=== PATIENT | male | born 1950 | race Caucasian/White ===

== ENCOUNTER 2020-08-28 11:52 | Outpatient (CLI) | payer MEDICARE, SELFPAY ==
--- NOTE | 2020-08-28 13:00 | ECG_ITS ---
Measurements Intervals [place] Rate: 61 P: 69 MO: 174 QRS: 7 QRSD: 111 T: 31 QT: 402 QTc: 405 Interpretive Statements SINUS RHYTHM INTRAVENTRICULAR CONDUCTION DELAY BORDERLINE R WAVE PROGRESSION, ANTERIOR LEADS BASELINE ARTIFACT- I, II, AVR, AVL, AVF, V4-V5 BORDERLINE ECG Electronically Signed On 08-28-2020 13:12:21 CDT by Darien Grimaldo D.O.
[2020-08-28 13:35] LABS: Anion Gap 5 mmol/L (8-16); Blood Urea Nitrogen 23 mg/dL (9-20); Calcium 9.7 mg/dL (8.4-10.2); Carbon Dioxide 32 mmol/L (22-30); Chloride 102 mmol/L (98-107); Estimated Glomerular Filt Rate 60; Glucose 171 mg/dL (75-110); Potassium 4.5 mmol/L (3.4-5.0); Sodium 139 mmol/L (137-145)
== END 2020-08-28 11:53 | disposition home or self-care (01) ==
LOC: ANHSURGERY 11:55
PROVIDERS: Anesthesiology; PCP Family Medicine; Visit Provider Urology
DX: Z01.818 Encounter for other preprocedural examination (principal); N52.9 Male erectile dysfunction, unspecified; E78.00 Pure hypercholesterolemia, unspecified; E11.9 Type 2 diabetes mellitus without complications; I45.9 Conduction disorder, unspecified; Z51.81 Encounter for therapeutic drug level monitoring; Z79.899 Other long term (current) drug therapy
CPT/HCPCS: 36415; 80048; 83036; 87086; 87088; 93005

== ENCOUNTER → 2020-09-02 01:00 | Outpatient (CLI) | payer MEDICARE, SELFPAY ==
[2020-09-02 18:53] LABS: SARS-CoV-2 RNA PCR Negative
== END ==
PROVIDERS: PCP Family Medicine; Visit Provider Urology
DX: Z01.812 Encounter for preprocedural laboratory examination (principal); Z20.822 Contact with and (suspected) exposure to COVID-19
CPT/HCPCS: C9803; U0003; U0005

== ENCOUNTER 2020-09-06 01:56 | Day surgery (SDC) | payer MEDICARE, SELFPAY ==
[2020-08-28 09:12] VITALS: BP 141/66; PULSE 66; RESP 18; TEMP 37.4; O2SAT 96
[2020-08-28 12:22] VITALS: BMI 40.3
[2020-09-06] VITALS (9 sets, daily range): BP systolic 139–172; BP diastolic 66–79; PULSE 74–86; RESP 14–20; TEMP 36.6–37.2; O2SAT 92–100
[2020-09-06] MEDS: LACTATED RINGERS 1,000 ML 30 ML IV CONT ×2 (10:10→15:28)
[2020-09-06 10:22] LABS: Glucose Point of Care 154 (65-105)
[2020-09-06] MEDS: GENTAMICIN SULFATE INJ 450 MG in DEXTROSE 5% 100 ML 96.32 MG IVPB (10:45)
--- NOTE | 2020-09-06 11:20 | WPDANESEPPF ---
Anes - Initial Pre Proc Eval Procedure: Operation Date: 09/06/20 12:00 Proposed Procedures p Insertion Penile Implant Prosthesis - Komal Norman MD Date/Time: 09/06/20 11:20 Surgeon: Komal Norman MD Pre Op Diagnosis: Erectile Dysfunction Patient Data Age: 70 Gender: M Height: 5 ft 9 in Weight: 119.6 kg Last Vital Signs Temp 36.6 C 09/06/20 09:40 Pulse 75 09/06/20 09:40 Resp 20 09/06/20 09:40 BP 147/79 H 09/06/20 09:40 Pulse Ox 100 09/06/20 09:40 Allergies Allergy/AdvReac Type Severity Reaction Status Date / Time No Known Allergies Allergy Verified 09/06/20 09:58 Home Medications Medication Instructions Recorded Confirmed Type albuterol sulfate 2 puff INHALATION QID PRN 08/28/20 09/06/20 History aspirin 81 mg PO DAILY 08/28/20 09/06/20 History cetirizine 10 mg PO DAILY 08/28/20 09/06/20 History empagliflozin [Jardiance] 10 mg PO QPM 08/28/20 09/06/20 History fluticasone furoate-vilanterol 1 ea INHALATION QAM 08/28/20 09/06/20 History [Breo Ellipta] meloxicam 1 mg PO DAILY 08/28/20 09/06/20 History montelukast 10 mg PO QPM 08/28/20 09/06/20 History omega 1-ohj-hhe-fish oil [Fish Oil] 1 cap PO DAILY 08/28/20 09/06/20 History omeprazole 20 mg PO DAILY 08/28/20 09/06/20 History pioglitazone-metformin 1 tablet PO BID 08/28/20 09/06/20 History rosuvastatin 40 mg PO DAILY 08/28/20 09/06/20 History sertraline 50 mg PO QAM 08/28/20 09/06/20 History testosterone cypionate 100 mg IM WEEKLY 08/28/20 09/06/20 History vit C-vit F-jmiree-nho-om-3 1 cap PO DAILY 08/28/20 09/06/20 History [Ocuvite] Laboratory Tests 09/06/20 10:16 POC Capillary Glucose 154 mg/dl H mg/dl (65-105) Patient hx anesthesia problems: none Family hx anesthesia problems: none PMFSH Past Medical History Medical History (Updated 09/06/20 @ 11:20 by Lionel Armstrong MD) Diabetes Obesity SHANITA (obstructive sleep apnea) Surgical History Surgical History (Updated 09/06/20 @ 11:21 by Lionel Armstrong MD) History of total knee arthroplasty Social History Social History Smoking packs per day: 2 Smoking cigarettes per day: 40.0 Years smoked: 18 Smoking pack-years: 36.00 Smoking status: Former smoker Smoking end date: 11/24/83 Alcohol intake: current Drinks per week: 8 Alcohol use details: BEER Substance use: never Living arrangements: with family Additional living arrangements comments: Spiritual care concerns: No Anes - Eval Final PreProcedure Day of Procedure 09/06/20 11:20 Patient weight: obese Heart: regular rate and rhythm Lungs: clear to auscultation Airway: Mallampati scale class II Neurological: alert and oriented Last oral intake: >/= 8 hours ASA classification: III Emergent: no Anesthetic plan: proceed Anesthesia type and monitoring: general LMA and standard monitoring Informed Consent: The patient's anesthetic plan and its attendant risks and benefits were discussed with the patient/family/POA. Questions were solicited and answers provided to the satisfaction of the patient/family/POA.
--- NOTE | 2020-09-06 12:20 | WPDHPUPDATE1 ---
History and Physical Update Update Date/Time: 09/06/20 12:20 History and Physical has been reviewed, including an updated exam of the patient. There are NO changes in the patient's condition. Risks, benefits, and alternatives have been discussed and questions answered. Patient agrees to proceed with procedure.
--- NOTE | 2020-09-06 12:21 | WPDHPUPDATE1 ---
History and Physical Update Update Date/Time: 09/06/20 12:21 History and Physical has been reviewed, including an updated exam of the patient. There are NO changes in the patient's condition. Risks, benefits, and alternatives have been discussed and questions answered. Patient agrees to proceed with procedure.
--- NOTE | 2020-09-06 14:59 | SUR.OPER ---
EBL:10cc
--- NOTE | 2020-09-06 15:32 | PM.PROC ---
Procedure Note - Detailed Date of procedure: 09/06/20 Pre-op diagnosis: Erectile Dysfunction Post-op diagnosis: same Procedure performed: 1. Insertion of 3-piece inflatable penile prosthesis. 2. Artificial erection using pharmacological agent. Description of procedure: DESCRIPTION OF OPERATION Informed consent obtained, patient taken to the operating room and given preoperative IV antibiotics with vancomycin and gentamicin. Additionally the patient has been taking oral levofloxacin and done a 3-day wash with Hibiclens. The patient was shaved. He was then prepped with Betadine scrub and paint followed by ChloraPrep. Sterile drapes were placed. We again prepped with ChloraPrep. A 16-Polish Yu catheter was inserted with return of clear urine. We then performed a pharmacologically induced erection with dilute lidocaine. There was a symmetric, straight erection. We then made a penoscrotal 3 cm incision. We dissected bluntly down to identify the corporal bodies taking great care not to injure the urethra. Stay sutures of 2-0 PDS were placed in the corporal body. We sharply opened the corpora. We then serially dilated up to a 12 Dash dilator. We then measured the corpora. Measurements were 12 cm proximally and 12 cm distally. We irrigated and there was no injury. We then performed an identical procedure on the contralateral side. Measurements were 11 cm proximal, 13 cm distal. Dilators were placed into the corpora bilaterally confirming that there was no crossover. We elected to place an AMS CX device 21 cm + 3 cm of rear tip extenders. We again irrigated the corporal bodies. We then inserted the prosthesis. We inflated using a surrogate reservoir and the device sat nicely, however the tips were in the proximal glans. We therefore removed each cylinder and exchanged a 3cm for 4cm rear tips. We then performed another test inflation at this point, cylinder tips were now in the mid glans with a much better cosmetic result. We then deflated. We then closed the pre-placed 2-0 PDS sutures. Therefore, the final implant was an AMS CX device 21 cm + 3 cm of rear tip extenders. We again inflated using the surrogate reservoir with an excellent cosmetic result. We then made a right lower quadrant incision for approximately 2 cm. We bluntly dissected down to the external oblique fascia. The fascia was opened. We then the rectus muscle and created a space superiorly in the sub rectus. We emptied the bladder prior to our incision. We then irrigated copiously. We pre-placed 0 Vicryl sutures. We placed the reservoir in the sub rectus space. We fill it with 110 mL and there was no back pressure. We then left 90 mL in the reservoir. Our pre-placed external oblique fascia sutures were closed. We then made a subdartos pouch in the midline for the pump placement. It sat nicely in the inferior scrotum. We then closed the hiatus with 3-0 Vicryl suture. The tubing was then brought up to the abdominal incision. Using the quick connect device, we connected the pump to the reservoir. We then cycled the device again and it functioned nicely. We then removed the stay sutures through the glans. We then again irrigated copiously. We closed the scrotal incision with a longitudinal followed by transverse 3-0 Vicryl sutures and then 3 0 Monocryl l skin closure. The right lower quadrant incision was closed with 2-0 Vicryl to Lissette's, 3-0 Vicryl deep dermal layer and a 4-0 Monocryl subcuticular closure. Glue was placed over all incisions. A compressive dressing was placed. Patient was awakened and taken to recovery room in stable condition. IV FLUIDS Per anesthesia. COMPLICATIONS None. EBL Minimal. FOLLOWUP The patient will be discharged home with a Yu catheter overnight. He will remove dressing and catheter tomorrow. Anesthesia: GLMA Surgeon: Komal Norman MD Drains: No Packing: No Pathology: none sent Complications: No immediate complications Condition: stable Disposition: PAC
[2020-09-06 15:37] LABS: Glucose Point of Care 154 (65-105)
[2020-09-06] MEDS: oxyCODONE HCL (*CRX) 5 MG TAB IR PO (18:02)
== END 2020-09-06 18:12 | disposition home or self-care (01) ==
PROVIDERS: PCP Family Medicine; Visit Provider Urology
PROC: (CPT 54405; principal; 2020-09-06 12:00)
DX: N52.9 Male erectile dysfunction, unspecified (principal); E11.9 Type 2 diabetes mellitus without complications; G47.33 Obstructive sleep apnea (adult) (pediatric); E66.9 Obesity, unspecified; Z68.38 Body mass index [BMI] 38.0-38.9, adult; Z79.51 Long term (current) use of inhaled steroids; Z79.82 Long term (current) use of aspirin; Z79.84 Long term (current) use of oral hypoglycemic drugs; Z87.891 Personal history of nicotine dependence
CPT/HCPCS: 54405; 54235; 36415; 80048; 82948; 83036; 87086; 87088; 93005; A9270; C9803; J1100; J1170; J1580; J2250; J2405; J2704; J3010; J3370; J7030; J7120; U0003; U0005